=== PATIENT | male | born 2000 | race Caucasian/White ===

== ENCOUNTER 2024-12-14 09:23 | Emergency (ER) | payer OTHER, SELFPAY ==
[2024-12-14 09:31] VITALS: BP 151/104; PULSE 85; O2SAT 100
[2024-12-14 09:32] VITALS: PULSE 83; O2SAT 98
[2024-12-14 09:33] VITALS: BP 151/104; PULSE 89; RESP 24; TEMP 36.5; O2SAT 100; BMI 21.7
[2024-12-14 10:05] LABS: Lactate* 3.8 mmol/L (0.5-1.9)
[2024-12-14] MEDS: ONDANSETRON 2 MG/ML inj 4 MG IVP (10:06)
[2024-12-14 10:07] LABS: Hematocrit* 47.0 % (37.0-53.0); Hemoglobin* 16.5 gm/dL (13.5-17.5); Immature Granulocytes Abs Auto 0.01 K/uL (0.00-0.30); Immature Granulocytes Pct Auto 0.2 %; Mean Corpuscular HGB Conc 35 gm/dL (32-36); Mean Corpuscular Hemoglobin 31 pg (26-34); Mean Corpuscular Volume 87 fL (80-100); RDW Coefficient of Variation % 11.7 % (11.5-15.5); Red Blood Count* 5.38 m/uL (4.30-5.90); White Blood Count* 4.63 K/uL (4.50-11.00)
[2024-12-14 10:13] LABS: Lymphocytes Absolute Auto 2.10 K/uL (0.90-2.90); Slide Review Reflex No
--- OUTSIDE RECORDS SUMMARY | 2024-12-14 10:19 | XMS_ITS | Clinical Summary ---
Author Organization [employer] [facility] Address [address] [place] [id number] Care Team Providers Care Process Trainer Name Role Phone Pcp, No Primary Care Provider Unavailabl e Allergies No known active allergies Medications multivit-mineral s/folic acid (MULTIVITAMIN GUMMIES ORAL) Take by mouth. Active Active Problems Problem Noted Date Diagnosed Date Adolescent idiopathic scoliosis of thoracolumbar region 01/10/2024 Immunizations Immunization Administration Dates Next Due INFLUENZA, IIV3 PF (AGE >= 6 MO) 01/10/2024 Family History Medical History Relation Name Comments Cancer-breast Maternal Aunt Dementia Maternal Grandfather Other Mother Prediabetes Cancer Paternal Grandmother Relation Name Status Comments Maternal Aunt Alive Maternal Grandfather Mother Paternal Grandmother Social History Tobacco Use Types Packs/Day Years Used Date Smoking Tobacco: Never Passive Smoke Exposure: Never Smokeless Tobacco: Never Tobacco Cessation:Counseling Given: Yes Alcohol Use Standard Drinks/Week Comments Never 0 (1 standard drink = 0.6 oz pur e alcohol) PHQ-2 Answer Date Recorded PHQ-2 TOTAL SCORE 0 01/10/2024 Sex and Gender Information Value Date Recorded Sex Assigned at Not on file Legal Sex Male 1:16 PM CDT Gender Identity Not on file Sexual Orientation Not on file Obstetrics History Last Filed Vital Signs Vital Sign Reading Time Taken Comments Blood Pressure 117/66 01/10/2024 12:42 PM CDT Pulse 57 01/10/2024 12:42 PM CDT Temperature - - Respiratory Rate - - Oxygen Saturation 99% 01/10/2024 12:42 PM CDT Inhaled Oxygen Concentration - - Weight 72.4 kg (159 lb 9.6 oz) 01/10/2024 12:42 PM CDT Height 182.9 cm (6') 01/10/2024 12:42 PM CDT Body Mass Index 21.65 01/10/2024 12:42 PM CDT Plan of Treatment Health Maintenance Due Date Last Done Comments Tetanus booster 2013 HIV for age 15-65 2017 HPV series for age 9-45 (1 - Male 3-dose series) 2017 Hepatitis C screening for ag e 18-79 2020 Hepatitis B series for 19+ ( 1 of 3 - 19+ 3-dose series) 2021 COVID-19 vaccine series ( - season) 2024 Influenza Vaccine (#1) 2024 01/10/2024 BMI (ht and wt on same day) for age 18+ 01/09/2025 01/10/2024 Depression screening for age 12+ 01/09/2025 01/10/20 RSV vaccine for adults or (1 - 1-dose 75+ series) 2077 Pneumococcal series for age 6-49 Aged Out No longer eligible based on patient's age to complete this topic Insurance [employer] [place] [id number] Care Teams Process Trainer Relationship Specialty Start Date End Date Pcp, No . PCP - General 01/10/24
[2024-12-14 10:20] LABS: Mono Screen* Negative (Negative)
[2024-12-14 10:21] LABS: Albumin* 4.9 g/dL (3.3-5.0); Chloride* 106 mmol/L (96-114)
[2024-12-14 10:22] LABS: Sodium* 139 mmol/L (135-149)
[2024-12-14 10:23] LABS: Potassium* 3.7 mmol/L (3.6-5.1)
[2024-12-14 10:24] LABS: Blood Urea Nitrogen* 18 mg/dL (5-24); Creatinine* 1.1 mg/dL (0.5-1.5); Est. Creatinine Clearance* 108.13; Estimated Glomerular Filt Rate 97 ml/min
[2024-12-14 10:25] LABS: Alanine Aminotransferase* 30 U/L (4-50); Alkaline Phosphatase* 78 U/L (40-150); Anion Gap 14 mEq/L (7-15); Aspartate Amino Transferase* 35 U/L (12-35); Bilirubin Direct* 0.3 mg/dL (0.0-0.5); Bilirubin Total* 0.7 mg/dL (0.1-1.5); Calcium* 9.7 mg/dL (8.4-10.6); Carbon Dioxide* 19 mmol/L (20-32); Glucose* 154 mg/dL (60-115); Total Protein* 8.1 g/dL (6.0-8.3)
[2024-12-14 10:40] LABS: Acetaminophen* < 10.0 ug/mL (10.0-30.0); Ethanol* < 0.01 % (0.01-0.03)
[2024-12-14 10:42] LABS: Procalcitonin* 0.07 ng/mL (<0.50)
[2024-12-14 10:43] VITALS: BP 125/81; RESP 16
--- NOTE | 2024-12-14 10:43 | ED_ITS ---
HPI - General Adult General Chief complaint: Abdominal Pain Stated complaint: L lower stomach pain, arms are numb Time Seen by Provider: 12/14/24 09:25 Source: patient Mode of arrival: ambulatory Limitations: no limitations History of Present Illness HPI narrative: 24-year-old male presenting with left-sided abdominal pain that started around 745 in the morning. He feels very nauseated. He did vomit upon arrival to the ED. He denies any fevers or chills. Nothing seems to make the pain better or worse. He cannot find a comfortable position peers never had pain like this before. Denies abdominal surgery in the past. Denies any medical conditions, takes no medications. Related Data Previous Rx's ?Medication ?Instructions ?Recorded ketorolac 10 mg tablet 10 mg PO TID PRN pain 5 days #15 12/14/24 tabs tamsulosin 0.4 mg capsule (Flomax) 0.4 mg PO QHS #30 c aps 12/14/24 Allergies Allergy/AdvReac Type Severity Reaction Status Date / Time No Known Drug Allergies Allergy Verified 12/14/24 09:32 Review of Systems Status of ROS: Reports: 10 or more systems reviewed and unremarkable except as noted in History and below Exam Narrative: Exam Narrative: Well-nourished well-developed patient, very uncomfortable. Alert and oriented. Answers questions appropriately. Mood and affect are appropriate. HEENT: Normocephalic atraumatic. Pupils are equally round reactive to light. Extraocular muscles are intact. Conjunctivae are moist without any icterus noted. Moist mucous membranes. Cardiovascular: Heart is regular rate and rhythm S1 and S2 are present without any murmurs. Lungs: Clear to auscultation bilaterally no wheezes rhonchi or rales are appreciated. Patient takes deep breaths without any discomfort. Abdomen: Soft and nontender nondistended with normal bowel sounds. No guarding or rebound. No CVA tenderness. I cannot reproduce his pain, but he is clearly very uncomfortable. Extremities: Bilateral lower extremities are without edema. Skin: Well perfused. Testicular exam reveals no testicular pain or swelling. No inguinal lymphadenopathy. Const: Vital Signs, click to edit/add: Vital Signs - 24 hr 12/14/24 09:31 12/14/24 09:32 12/14/24 09:33 Temperature 97.7 F Pulse Rate 85 83 Pulse Rate [Pulse Oximeter] 89 Respiratory Rate 24 Blood Pressure 151/104 H Blood Pressure [Ri ght Upper Arm] 151/104 H Pulse Oximetry 100 98 100 Oxygen Delivery Me thod Room Air 12/14/24 10:43 12/14/24 12:58 Temperature Pulse Rate Pulse Rate [Pulse Oximeter] 78 Respiratory Rate 16 Blood Pressure 125/81 Blood Pressure [Ri ght Upper Arm] Pulse Oximetry 98 Oxygen Delivery Me thod Course Course ED Course: Differential includes kidney stone, volvulus, ischemic bowel, appendicitis, pancreatitis. IV established patient is given Toradol and a L of normal saline is ordered. CBCs unremarkable. Chemistries are unremarkable. Glucose elevated slightly at 154 Lactate is elevated at 3.8. Normal CRP. Normal lipase. Procalcitonin is within normal limits. Normal LFTs. Urinalysis showing 2-5 RBCs, trace blood. Abdominal CT scan done without contrast shows mild left-sided hydroureter onephrosis extending to the UVJ. At this location there is a subtle 4 mm focus of increased attenuation. Per the radiology report the leading differential considerations include a stone versus a blood clot. I discussed this with the patient and his mother. Patient has a strong family history of kidney stones including his father. There is no family history of blood clots or bleeding disorders. Patient was self is healthy and denies trauma to the abdomen or pelvis. Vital Signs Vital signs: Initial Vital Signs Pulse Rate 85 12/14/24 09:31 Blood Pressure 151/104 H 12/14/24 09:31 Blood Pressure Mean 119 H 12/14/24 09:31 Pulse Oximetry 100 12/14/24 09:31 Vital Signs Pulse Rate 85 12/14/24 09:31 Blood Pressure 151/104 H 12/14/24 09:31 Pulse Oximetry 100 12/14/24 09:31 Temperature 97.7 F 12/14/24 09:33 Pulse Rate 78 12/14/24 12:58 Respiratory Rate 16 12/14/24 10:43 Blood Pressure 125/81 12/14/24 10:43 Pulse Oximetry 98 12/14/24 12:58 Oxygen Delivery Method Room Air 12/14/24 09:33 Medications Administered Medications: Discontinued Medications Generic Name Dose Route Start Last Admin Trade Name Freq PRN Reason Stop Dose Admin Sodium Chloride 1,000 mls @ 1,000 mls/hr 12/14/24 09:45 09/29/25 11:20 0.9 % Sodium Chloride 1000 Ml IV 12/14/24 10:44 Infused .Q1H [id number] Infusion Ketorolac Tromethamine 30 mg 12/14/24 10:01 12/14/24 10:07 Ketorolac 30 Mg/Ml Inj IVP 12/14/24 10:02 30 mg ONCE ONE Administration Ondansetron HCl 4 mg 12/14/24 09:36 12/14/24 10:06 Ondansetron 2 Mg/Ml Inj IVP 12/14/24 09:37 4 mg ONCE ONE Administration Medical Decision Making MDM Narrative Medical decision making narrative: 24-year-old male with symptoms very consistent with a kidney stone. At this time we will treat him as such with Toradol and Flomax. We discussed, with both patient and his mother, having a low threshold to return if he is not improving or certainly if he is getting worse. Lab Data Lab results reviewed: Yes I reviewed the patient's lab results Labs: Lab Results 12/14/24 12/14/24 12/14/24 Range/Units 09:55 10:10 10:50 WBC 4.63 (4.50-11.00) K/uL RBC 5.38 (4.30-5.90) m/uL Hgb 16.5 (13.5-17.5) gm/dL Hct 47.0 (37.0-53.0) % MCV 87 (80-100) fL MCH 31 (26-34) pg MCHC 35 (32-36) gm/dL RDW Coeff of Hilaria 11.7 (11.5-15.5) % Plt Count 184 (140-440) K/uL Neut % (Auto) 42.3 (42.0-72.0) % Lymph % (Auto) 45.1 H (20-44) % [place] % (Auto) 10.2 (0.0-11.0) % Eos % (Auto) 1.3 (0.0-7.0) % Baso % (Auto) 0.9 (0.0-3.0) % Neut # (Auto) 1.96 (1.7-7.0) K/uL Lymph # (Auto) 2.10 (0.90-2.90) K/uL [place] # (Auto) 0.50 (0.00-0.90) K/UL Eos # (Auto) 0.06 (0.00-0.50) K/uL Baso # (Auto) 0.04 (0.00-0.30) K/uL Abs Immat Gran (auto) 0.01 (0.00-0.30) K/uL Imm/Tot Granulo (auto) 0.2 % Sodium 139 (135-149) mmol/L Potassium 3.7 (3.6-5.1) mmol/L Chloride 106 (96-114) mmol/L Carbon Dioxide 19 L (20-32) mmol/L Anion Gap 14 (7-15) mEq/L BUN 18 (5-24) mg/dL Creatinine 1.1 (0.5-1.5) mg/dL Estimated Creat Clear 108.13 Estimated GFR 97 ml/min Glucose 154 H (60-115) mg/dL Lactate 3.8 H (0.5-1.9) mmol/L Calcium 9.7 (8.4-10.6) mg/dL Magnesium 1.8 (1.5-2.6) mg/dL Total Bilirubin 0.7 (0.1-1.5) mg/dL Direct Bilirubin 0.3 (0.0-0.5) mg/dL AST 35 (12-35) U/L ALT 30 (4-50) U/L Alkaline Phosphatase 78 (40-150) U/L C-Reactive Protein < 0.5 L (0.5-1.0) mg/dL Total Protein 8.1 (6.0-8.3) g/dL Albumin 4.9 (3.3-5.0) g/dL Lipase 88 (23-300) U/L Procalcitonin 0.07 (<0.50) ng/mL Urine Color Yellow (Yellow) Urine Appearance Clear (Clear) Urine pH 7.0 (5.0-8.5) Ur Specific [place] 1.025 (1.000-1.030) Urine Protein Negative (Negative) Urine Glucose (UA) Negative (Negative) Urine Ketones Trace A (Negative) Urine Blood Trace-intact A (Negative) Urine Nitrite Negative (Negative) Urine Bilirubin Negative (Negative) Urine Urobilinogen 0.2 (0.2-1.0) Ur Leukocyte Esterase Negative (Negative) Urine RBC 2-5 A (0-2) Urine WBC 0-2 (0-5) Ur Squamous Epith Cells None (None-Few) Urine Bacteria None (None) Urine Opiates Screen Negative (Negative) Ur Oxycodone Screen Negative (Negative) Urine Methadone Screen Negative (Negative) Acetaminophen < 10.0 (10.0-30.0) ug/mL Ur Barbiturates Screen Negative (Negative) U Tricyclic Antidepress Negative (Negative) Ur Phencyclidine Scrn Negative (Negative) Ur Amphetamines Screen Negative (Negative) U Methamphetamines Scrn Negative (Negative) U Benzodiazepines Scrn Negative (Negative) Urine Cocaine Screen Negative (Negative) U Marijuana (THC) Screen Negative (Negative) Ur Drug Screen Comment See Note Ethyl Alcohol < 0.01 (0.01-0.03) % SARS-CoV-2 (PCR) Negative SARS-CoV-2 (Negative) Monoscreen Negative (Negative) Influenza Type A (PCR) Negative PCR FLU A (Negative) Influenza Type B (PCR) Negative PCR FLU B (Negative) RSV (PCR) Negative PCR RSV (Negative) Group A Strep DNA NOT DETECTED (Not Detectd) Imaging Data CT scan - abdomen: Attestation: I have reviewed the pertinent imaging results. Radiologist's impression: TECHNIQUE: CT abdomen and pelvis without contrast. COMPARISON: None. FINDINGS: Lower chest: 2 millimeter left lower lobe subpleural indeterminate pulmonary nodule, likely intrapulmonary lymphoid tissue. ABDOMEN: Liver: Normal attenuation. Gallbladder and biliary: Normal gallbladder without radiopaque stone. Normal caliber bile ducts. Spleen: Normal size and attenuation. Pancreas: The noncontrast pancreas is homogeneous in attenuation without peripancreatic inflammatory changes or ductal dilatation. Adrenal glands: Normal adrenal glands. Kidneys and ureters: Mild left-sided hydroureteronephrosis extending to the UVJ. At this location there is a subtle 4 millimeter focus of increased attenuation. No right-sided hydroureteronephrosis. GI tract: The stomach is relatively decompressed. Normal caliber small and large bowel loops. Normal appendix. Vascular structures: Normal caliber abdominal aorta. Lymph nodes: No lymphadenopathy in the abdomen or pelvis by size criteria. Peritoneum: No free air, free fluid, or focal drainable fluid collection. PELVIS: Genitourinary system: Urinary bladder is partially decompressed with circumferential wall thickening. SKELETAL STRUCTURES AND SOFT TISSUES: No suspicious lytic or blastic lesions. IMPRESSION: Mild left-sided hydroureteronephrosis extending to the UVJ. At this location there is a subtle 4 millimeter focus of increased attenuation. Leading differential considerations include a stone versus blood clot. Partially decompressed urinary bladder with circumferential wall thickening. This may be reactive versus secondary to underlying cystitis. Discharge Plan Discharge Clinical Impression: Kidney stone Patient Disposition: Home, Self-Care Condition: Stable Additional Instructions: Take pain medications as needed. Take daily Flomax until stone has passed. Return to the emergency department if you develop pain that cannot be controlled , vomiting or fevers. Prescriptions: New tamsulosin [Flomax] 0.4 mg capsule 0.4 mg PO QHS Qty: 30 0RF ketorolac 10 mg tablet 10 mg PO TID PRN (Reason: pain) 5 Days Qty: 15 0RF Follow Up/Referrals: Provider,Not a Local [Primary Care Provider, Family Practice] Stand Alone Forms: [employer] Info Instructions
[2024-12-14 10:45] LABS: Strep A DNA Probe* NOT DETECTED (Not Detectd)
[2024-12-14 10:57] LABS: PCR FLU A Negative PCR FLU A (Negative); PCR FLU B Negative PCR FLU B (Negative); PCR RSV Negative PCR RSV (Negative); SARS PCR* Negative SARS-CoV-2 (Negative)
[2024-12-14 11:05] LABS: Appearance Urine Clear (Clear)
--- NOTE | 2024-12-14 11:14 | CRLHL7_ITS ---
For Patients: As a result of the Century Cures Act, medical imaging exams and procedure reports are released immediately into your electronic medical record. You may view this report before your referring provider. If you have questions, please contact your health care provider. INDICATION: .LLQ PAIN, NAUSEA, VOMITING TECHNIQUE: CT abdomen and pelvis without contrast. COMPARISON: None. FINDINGS: Lower chest: 2 millimeter left lower lobe subpleural indeterminate pulmonary nodule, likely intrapulmonary lymphoid tissue. ABDOMEN: Liver: Normal attenuation. Gallbladder and biliary: Normal gallbladder without radiopaque stone. Normal caliber bile ducts. Spleen: Normal size and attenuation. Pancreas: The noncontrast pancreas is homogeneous in attenuation without peripancreatic inflammatory changes or ductal dilatation. Adrenal glands: Normal adrenal glands. Kidneys and ureters: Mild left-sided hydroureteronephrosis extending to the UVJ. At this location there is a subtle 4 millimeter focus of increased attenuation. No right-sided hydroureteronephrosis. GI tract: The stomach is relatively decompressed. Normal caliber small and large bowel loops. Normal appendix. Vascular structures: Normal caliber abdominal aorta. Lymph nodes: No lymphadenopathy in the abdomen or pelvis by size criteria. Peritoneum: No free air, free fluid, or focal drainable fluid collection. PELVIS: Genitourinary system: Urinary bladder is partially decompressed with circumferential wall thickening. SKELETAL STRUCTURES AND SOFT TISSUES: No suspicious lytic or blastic lesions. IMPRESSION: Mild left-sided hydroureteronephrosis extending to the UVJ. At this location there is a subtle 4 millimeter focus of increased attenuation. Leading differential considerations include a stone versus blood clot. Partially decompressed urinary bladder with circumferential wall thickening. This may be reactive versus secondary to underlying cystitis. Please note that all CT scans at this facility use dose modulation, iterative reconstruction, and/or weight-based dosing when appropriate to reduce radiation dose to as low as reasonably achievable. Dictated by Perry Dailey MD @ 12/14/2024 12:05:27 PM (Electronically Signed)
[2024-12-14 11:16] LABS: Cannabinoid Screen Urine Negative (Negative); Methamphetamines Screen Urine Negative (Negative); Tricyclic Antidepressant Urine Negative (Negative)
[2024-12-14 12:58] VITALS: PULSE 78; O2SAT 98
== END 2024-12-14 13:25 | disposition home or self-care (01) ==
PROVIDERS: Emergency Provider Family Medicine
DX: N20.0 Calculus of kidney (principal)
CPT/HCPCS: 36415; 74176; 80048; 80076; 80143; 80306; 81001; 82077; 83605; 83690; 83735; 84145; 85025; 86140; 86308; 87086; 87631; 87651; 94761; 96374; 96375; 99284; J1885; J2405; J7030